=== PATIENT | female | born 1975 | race Caucasian/White ===

== ENCOUNTER 2019-09-19 10:29 | Emergency (ER) | payer OTHER, SELFPAY ==
[~2019-09-19] VITALS: Ht 167.6 cm; Wt 79.4 kg
[2019-09-19 10:34] VITALS: Ht 167.6 cm; Wt 79.4 kg
[2019-09-19 11:04] LABS: microscopic required? NO
[2019-09-19 11:10] LABS: UA SPECIFIC GRAVITY 1.025 (1.005-1.035); urine erythrocyte NEGATIVE (NEGATIVE)
[2019-09-19 11:12] LABS: BASOPHIL % 0.6 % (0-2); PLATELET COUNT 302 x10^3mcL (130-400)
[2019-09-19 11:13] LABS: RED CELL DISTRIBUTION WIDTH 14.8 % (11.5-14.5)
[2019-09-19 11:34] LABS: CALCIUM 8.7 mg/dL (8.5-10.1); CARBON DIOXIDE 27.2 mmol/L (21-32); CHLORIDE SERUM 105 mmol/L (98-107); CREATININE SERUM 0.8 mg/dL (0.6-1.0); GFR1 > 60 mL/min; GLUCOSE SERUM 98 mg/dL (74-106); SODIUM SERUM 141 mmol/L (136-145)
[2019-09-19 11:38] LABS: ALKALINE PHOSPHATASE 136 U/L (46-116); ALT/SGPT 101 U/L (14-59); AST/SGOT 53 U/L (15-37); BILIRUBIN TOTAL 0.27 mg/dL (0.20-1.00); LIPASE 72 IU/L (73-393); TOTAL PROTEIN, SERUM 7.9 g/dL (6.4-8.2)
[2019-09-19 11:45] LABS: ALBUMIN 3.2 g/dL (3.4-5.0)
[2019-09-19 13:00] VITALS: BP 121/74
== END 2019-09-19 13:00 | disposition home or self-care (01) ==
LOC: ED 10:29
PROVIDERS: Emergency Medicine
DX: R50.9 Fever, unspecified (principal); G43.909 Migraine, unspecified, not intractable, without status migrainosus; Z88.2 Allergy status to sulfonamides
CPT/HCPCS: Q0092